=== PATIENT | female | born 1960 | race Caucasian/White ===

== ENCOUNTER → 2017-10-08 | Outpatient (CLI) | payer MEDICARE, BC, OTHER ==
[2014-08-21 07:57] VITALS: BP 132/74
[~2017-10-08] MED LIST: CRESTOR10 MG PO; PNV1TABL32 PO
--- NOTE | 2017-10-08 15:23 | KCIC ---
Bilateral digital screening mammograms: Reason for examination: Routine screening. Comparison is made to previous studies dated 08/21/2014 and 08/03/2014. Interpretation was made with the benefit of CAD. The skin and nipples show no abnormalities. No abnormal axillary lymph nodes are seen. The breast parenchyma shows scattered fibroglandular density. (Breast density: Category B.) There appear to be 2 small nodular densities in the right breast located in the 10:00 B position measuring 1 cm in size but appearing to be slightly larger than on previous exam. This probably represents cysts seen previously. There is also a small nodule present centrally in the right breast seen best on CC view and measuring 1 cm in size. This may be located in the 12:00 or 6:00 B position. There is also a small nodule in the left breast posterior laterally probably at the 3:00 position measuring approximately 7 mm in size. This may represent a small intramammary lymph node or a small cyst. Recommend further evaluation bilaterally with ultrasound. There are no other new dominant masses, suspicious calcifications or architectural distortions. Impression: 2 nodules in the right breast and one nodule located posterior laterally in the left breast. Recommend further evaluation with ultrasound. BI-RADS Category 0: Incomplete. Ultrasound follow-up is recommended. "Our facility is accredited by the [employer] Mammography [employer]." This patient's information has been entered into a reminder system for the patient to be notified with the results of her examination and a target date for the next mammogram. Electronically signed by: Darlene Allred MD (10/08/2017 3:21 PM) [id number]
== END | disposition home or self-care (01) ==
LOC: KCIC MAMMO 13:58
PROVIDERS: ATTEND Internal Medicine
DX: Z12.31 Encounter for screening mammogram for malignant neoplasm of breast (principal); N63.10 Unspecified lump in the right breast, unspecified quadrant; N63.20 Unspecified lump in the left breast, unspecified quadrant
CPT/HCPCS: G0202; 77067

== ENCOUNTER → 2017-11-01 | Outpatient (CLI) | payer MEDICARE, BC, OTHER ==
[2014-08-21 07:57] VITALS: BP 132/74
--- NOTE | 2017-11-01 09:40 | KCIC ---
Bilateral breast ultrasound: Reason for examination: Nodular densities on screening mammogram. Comparison is made to mammographic exam dated 10/08/2017. Bilateral breast ultrasound was performed in the areas of mammographic concern. In the 10:00 position 5 cm from the nipple, there is a 7.8 x 4.9 x 1.0 cm hypoechoic lesion consistent with a benign focus of fibrocystic change. In the 6:00 position 3 cm from the nipple, there is a 3.4 x 3.3 mm fibrocystic lesion. No suspicious lesions are seen. In the left breast at the 2:30 position 7 cm from the nipple, there is a 4.8 x 3.3 x 3.1 mm hypoechoic lesion consistent with some focal fibrocystic change. No suspicious lesions are seen. IMPRESSION: Benign-appearing fibrocystic type lesions in the right breast at the 10:00 and 6:00 positions and in the left breast at the 2:30 position which correspond to the areas of mammographic concern. Recommend reevaluation in 6 months with ultrasound. BI-RADS Category 3: Probably Benign. "Our facility is accredited by the [employer] Mammography [employer]." This patient's information has been entered into a reminder system for the patient to be notified with the results of her examination and a target date for the next mammogram. Electronically signed by: Darlene Allred MD (11/01/2017 9:37 AM) [id number]
== END | disposition home or self-care (01) ==
LOC: KCIC US 08:55
PROVIDERS: ATTEND Internal Medicine
DX: N63.0 Unspecified lump in unspecified breast (principal)
CPT/HCPCS: 76641